=== PATIENT | male | born 1990 | race Two or more races ===

== ENCOUNTER 2024-04-03 10:36 | Emergency (ER) | payer BC, OTHER ==
[~2024-04-03] VITALS: Ht 180.3 cm; Wt 83.0 kg
[2024-04-03 11:24] VITALS: BP 141/89; PULSE 100; RESP 18; TEMP 98.8; O2SAT 97
--- NOTE | 2024-04-03 12:22 | ED.PDOC ---
Musculoskeletal HPI Comments 33 year old presents for left buttock pain that shoots down the left posterior leg onset at work. started 3 days ago mechanism of injury: too a step over a trailer hitch Worsens with ambulation Denies history of chronic steroid use or history of osteoporosis Denies any history of cancer Denies fevers chills night sweats nausea vomiting unintentional weight loss Denies IV drug use history of HIV/TB Denies abdominal "tearing" pain Denies syncope Denies urinary incontinence or urinary changes Denies numbness tingling of the groin or inner thigh Denies previous back procedure or surgery Chief Complaint: Lower Extremity Time Seen by MD: 11:16 Reviewed Notes: Nurses Notes, Medications, Allergies Allergies: Coded Allergies: NO KNOWN ALLERGIES (Unverified , 04/03/24) Home Meds Active Scripts Methocarbamol (Methocarbamol) 500 Mg Tab, 500 MG PO QIDP for 14 Days, #56 TAB 0 Refills Prov:HILDA PATRICK NP 04/03/24 Meloxicam (Meloxicam) 7.5 Mg Tab, 1 TAB PO DAILYP PRN for 14 Days, #14 TAB 0 Refills Prov:HILDA PATRICK NP 04/03/24 Information Source: Patient Mode of Arrival: Wheelchair Past Medical History PAST MEDICAL HISTORY: Denies Surgical History: Denies all surgeries All Other Systems: Reviewed and Negative (Per HPI) Physical Exam General Appearance: No Apparent Distress, Normal HEENT: Normal ENT Inspection, Pharynx Normal, TMs Normal Neck: Full Range of Motion, Non-Tender, Normal, Normal Inspection Respiratory: Chest Non-Tender, Lungs Clear, No Accessory Muscle Use, No Respira tory Distress, Normal Breath Sounds Cardiovascular: No Edema, No JVD, No Murmur, No Gallop, Normal Peripheral Pulses, Regular Rate/Rhythm Breast Exam: Deferred Gastrointestinal: No Organomegaly, Non Tender, No Pulsatile Mass, Normal Bowel Sounds, Soft Genitalia: Deferred Pelvic: Deferred Rectal: Deferred Extremities: No calf tenderness, Normal capillary refill, Normal inspection, Normal range of motion, Non-tender, No pedal edema Musculoskeletal : Location: Left Extremity Location: Back (straight leg raise test positive) Apperance: Normal Neurologic: Alert, librarian assistant II-XII nml as Tested, No Motor Deficits, Normal Affect, Normal Mood, No Sensory Deficits Cerebellar Function: Normal Reflexes: Normal Skin: Dry, Normal Color, Warm Lymphatic: No Adenopathy Was a procedure done? Was a procedure done?: No Differential Diagnosis EXT Differential Diagnosis: Sprain, Other X-Ray, Labs, Meds, VS Vital Signs Date Time Temp Pulse Resp B/P (MAP) Pulse Ox O2 Delivery O2 Flow Rate FiO2 04/03/24 11:24 98.8 100 18 141/89 (106) 97 98.8 04/03/24 11:24 100 18 97 Room Air 04/03/24 10:54 98.8 100 18 141/89 (106) 97 Current Medications Medications (Trade) Dose Ordered Sig/Raiza Route Start Time Stop Time Status Last Admin Ketorolac Tromethamine (Toradol Injection) 30 mg ONCE ONCE IM 04/03/24 12:30 04/03/24 12:31 DC 04/03/24 12:29 Methylprednisolone Sodium Succinate (Solu Medrol) 125 mg ONCE ONCE IV 04/03/24 12:30 04/03/24 12:31 DC 04/03/24 12:28 X-Ray, Labs, Meds, VS Comment History and physical exam consistent with musculoskeletal injury. No red flags Supportive care advised (rest, ice, heat, NSAIDs, stretching exercises) Ibuprofen 600 mg every 8 hours with food as needed for the pain Consider duloxetine for chronic back pain Massage muscles with cold pack or ice for 20 minutes 4 times per day. Usually most useful if there is swelling during the first 48 hours Heating pad on the most painful area for 20 minutes to relieve muscle spasm Sleep and the most comfortable sleeping position (usually on the side with knees bent) Light stretching, no strenuous activity, avoid frequent bending, avoid carrying heavy objects Discussed possible benefits of yoga and acupuncture Return precautions discussed including Inability to walk/bear weight Paresthesia/weakness/leg pain Fecal/urinary incontinence Any worsening symptoms Time of 1ST Reevaluation: 12:19 Reevaluation 1ST: Improved Patient Education/Counseling: Diagnosis, Treatment, Prognosis Family Education/Counseling: Diagnosis, Treatment, Prognosis Departure 1 Departure Time of Disposition: 13:22 Impression: Primary Impression: Sciatica Qualified Codes: M54.32 - Sciatica, left side Disposition: HOME / SELF CARE / HOMELESS Condition: Stable e-Prescriptions Methocarbamol (Methocarbamol) 500 Mg Tab 500 MG PO QIDP for 14 Days, #56 TAB 0 Refills Prov: HILDA PATRICK NP 04/03/24 Meloxicam (Meloxicam) 7.5 Mg Tab 1 TAB PO DAILYP PRN for 14 Days, #14 TAB 0 Refills Prov: HILDA PATRICK NP 04/03/24 Discharged With: Self Critical Care Note Critical Care Time?: No Stability Stability form required: No Heart Score Heart Score: Heart Score Response (Comments) Value History N/A 0 EKG N/A 0 Age N/A 0 Risk Factors N/A 0 Troponin N/A 0 Total 0 HILDA PATRICK NP Apr 03, 2024 12:22
[2024-04-03] MEDS: methylPREDNISolone SOD SUCC 125 MG/2 ML VL IV ONE (12:28)
[2024-04-03] MEDS: KETOROLAC TROMETH 30 MG/ML 1ML VIAL IM ONE (12:29)
[2024-04-03] MEDS ORDERED: METH-1181 PO (13:24)
[2024-04-03] MEDS ORDERED: MELO7.5T7 PO (13:24)
== END 2024-04-03 13:24 | disposition home or self-care (01) ==
LOC: ER 10:36
DX: M54.32 Sciatica, left side (principal); Z79.1 Long term (current) use of non-steroidal anti-inflammatories (NSAID)
CPT/HCPCS: 96372; 96374; 99284; J1885; J2919